=== PATIENT | female | born 1990 | race Two or more races ===

== ENCOUNTER 2019-06-15 01:13 | Inpatient (IN) | payer BC ==
[2019-06-15] MEDS ORDERED: Carboprost Tromethamine 250 MCG/1 ML Amp IM PRN (03:31)
[2019-06-15] MEDS ORDERED: Misoprostol 200 MCG Tab PO PRN (03:31)
[2019-06-15] MEDS ORDERED: Sodium Chloride 0.9% 2.5 ML Syringe FLUSH PRN (03:31)
[2019-06-15] MEDS ORDERED: Sodium Chloride 0.9% 10 ML Syringe FLUSH PRN (03:31)
[2019-06-15] MEDS ORDERED: Ondansetron 4 MG/2 ML SDV IVPUSH PRN (03:31)
[2019-06-15] MEDS ORDERED: Water For Irrigation,Sterile 1,000 ML Container IRR PRN (03:31)
[2019-06-15] MEDS ORDERED: Sodium Chloride 0.9% 10 ML SDV IV PRN (03:31)
[2019-06-15] MEDS ORDERED: Lidocaine 1% 50 ML MDV INJECT PRN (03:31)
[2019-06-15] MEDS ORDERED: Methylergonovine 0.2 MG/1 ML Amp IM PRN ×2 (03:31→12:18)
[2019-06-15] MEDS ORDERED: Tranexamic Acid 1,000 MG in Sodium Chloride 0.9% 100 ML IV PRN (03:31)
[2019-06-15] MEDS ORDERED: Butorphanol 1 MG/ML SDV IVPUSH PRN (03:31)
[2019-06-15] MEDS ORDERED: Nalbuphine 10 MG/1 ML Vial IVPUSH PRN (03:31)
[2019-06-15] MEDS ORDERED: Oxytocin/0.9 % Sodium Chloride 30 UNIT/500 ML BAG IV SCH (03:45)
[2019-06-15] MEDS: Lactated Ringers 1,000 ML IV SCH ×2 (04:45→05:52)
--- NOTE | 2019-06-15 05:18 | PCM.PREANE ---
Preanesthetic Assessment - Anesthesia/Transfusion/Family Hx Anesthesia History: Prior Anesthesia Without Reaction Family History of Anesthesia Reaction: No Transfusion History: No Prior Transfusion(s) - Review of Systems General: No Symptoms Pulmonary: No Symptoms Cardiovascular: No Symptoms Gastrointestinal: No Symptoms Neurological: No Symptoms Other: Reports: None - Physical Assessment Height: 5 ft 3 in Weight: 72.575 kg ASA Class: 2 Mental Status: Alert & Oriented x3 Airway Class: Mallampati = 2 Dentition: Reports: Normal Dentition Thyro-Mental Finger Breadths: 3 Mouth Opening Finger Breadths: 3 ROM/Head Extension: Full Lungs: Clear to Auscultation, Normal Respiratory Effort Cardiovascular: Regular Rate, Regular Rhythm - Lab Values: Laboratory Last Values WBC 12.76 K/uL (4.0-11.0) H 06/15/19 03:50 RBC 4.71 M/uL (4.30-5.90) 06/15/19 03:50 Hgb 12.6 g/dL (12.0-16.0) 06/15/19 03:50 Hct 38.6 % (36.0-46.0) 06/15/19 03:50 MCV 82.0 fL (80.0-98.0) 06/15/19 03:50 MCH 26.8 pg (27.0-32.0) L 06/15/19 03:50 MCHC 32.6 g/dL (31.0-37.0) 06/15/19 03:50 RDW Std Deviation 46.7 fl (28.0-62.0) 06/15/19 03:50 RDW Coeff of Rodo 16 % (11.0-15.0) H 06/15/19 03:50 Plt Count 159 K/uL (150-400) 06/15/19 03:50 MPV 11.40 fL (7.40-12.00) 06/15/19 03:50 Nucleated RBC % 0.0 /100WBC 06/15/19 03:50 Nucleated RBCs # 0 K/uL 06/15/19 03:50 Blood Type O POSITIVE 06/15/19 03:50 Antibody Screen NEGATIVE 06/15/19 03:50 - Allergies Allergies/Adverse Reactions: Allergies Allergy/AdvReac Type Severity Reaction Status Date / Time No Known Allergies Allergy Verified 07/20/15 07:19 - Acknowledgements Anesthesia Type Planned: Epidural Pt an Appropriate Candidate for the Planned Anesthesia: Yes Alternatives and Risks of Anesthesia Discussed w Pt/Guardian: Yes Pt/Guardian Understands and Agrees with Anesthesia Plan: Yes PreAnesthesia Questionnaire HEENT History: Reports: None Cardiovascular History: Reports: None Respiratory History: Reports: None Gastrointestinal History: Reports: GERD Genitourinary History: Reports: None SOLE CONDITIONER History: Reports: : 4 Para: 2 LMP (Approximate): Musculoskeletal History: Reports: None Neurological History: Reports: None Psychiatric History: Reports: None Endocrine/Metabolic History: Reports: Diabetes, Gestational Hematologic History: Reports: None Immunologic History: Reports: None Oncologic (Cancer) History: Reports: None Dermatologic History: Reports: None - Infectious Disease History Infectious Disease History: Reports: None - Past Surgical History GI Surgical History: Reports: Other (See Below) Other GI Surgeries/Procedures: surgery for abdominal mass - HOME MEDS Home Medications: Home Meds Iron,Carbonyl/Vit C/Vit B12/Fa [Iron 100 Plus Tablet] 1 each PO DAILY 06/15/19 [ History] Vits #93/Iron Fum/FA [ Formula Tablet] 1 each PO DAILY [History] - CURRENT (IN HOUSE) MEDS Current Meds: Current Medications Butorphanol Tartrate (Stadol) 1 mg IVPUSH Q1H PRN PRN Reason: Pain Carboprost Tromethamine (Hemabate Ds) 250 mcg IM ASDIRECTED PRN PRN Reason: Post Hemorrhage Tranexamic Acid 1,000 mg/ (Sodium Chloride) 110 mls @ 660 mls/hr IV ONETIME PRN PRN Reason: Bleeding Lactated Ringer's (Ringers, Lactated) 1,000 mls @ 150 mls/hr IV ASDIRECTED SILVER Oxytocin/Sodium Chloride (Oxytocin 30 Unit/500 Ml-Ns) 30 unit in 500 mls @ 999 mls/hr IV TITRATE SILVER Lidocaine HCl (Xylocaine 1%) 50 ml INJECT ONETIME PRN PRN Reason: Laceration repair Methylergonovine Maleate (Methergine) 0.2 mg IM ASDIRECTED PRN PRN Reason: Post Hemorrhage Misoprostol (Cytotec) 200 mcg PO ONETIME PRN PRN Reason: Post Hemorrhage Nalbuphine HCl (Nubain) 10 mg IVPUSH Q1H PRN PRN Reason: Pain (severe 7-10) Ondansetron HCl (Zofran) 4 mg IVPUSH Q6H PRN PRN Reason: Nausea/Vomiting Sodium Chloride (Saline Flush) 10 ml FLUSH ASDIRECTED PRN PRN Reason: Keep Vein Open Sodium Chloride (Saline Flush) 2.5 ml FLUSH ASDIRECTED PRN PRN Reason: Keep Vein Open Sodium Chloride (Normal Saline) 10 ml IV ASDIRECTED PRN PRN Reason: IV Use Sterile Water (Sterile Water For Irrigation) 1,000 ml IRR ASDIRECTED PRN PRN Reason: delivery
--- NOTE | 2019-06-15 11:52 | PCM.OPNOTE ---
- General Post-Op/Procedure Note Date of Surgery/Procedure: 06/15/19 Findings: Vaginal delivery of live male . Apgars 9/9. Weight pending. 3VC. placenta intact. Pre Op Diagnosis: 29yo at 39/3 IUP. Presenting in active labor. History of diet controlled gestational diabetes. Post-Op Diagnosis: same Anesthesia Technique: Epidural Primary Surgeon: Danielle Garibay Surgery Teacher: Alyssa Brito Role of Surgery Teacher: Medical Student, MS4 EBL in mLs: 250 Condition: Good
--- NOTE | 2019-06-15 12:00 | PCM48HPAN ---
Post Anesthesia Note - EVALUATION WITHIN 48HRS OF ANESTHETIC Vital Signs in Normal Range: Yes Patient Participated in Evaluation: Yes Respiratory Function Stable: Yes Airway Patent: Yes Cardiovascular Function Stable: Yes Hydration Status Stable: Yes Pain Control Satisfactory: Yes Nausea and Vomiting Control Satisfactory: Yes Mental Status Recovered: Yes
[2019-06-15] MEDS ORDERED: Acetaminophen 500 MG Tab PO PRN ×2 (12:18)
[2019-06-15] MEDS ORDERED: Measles, Mumps & Rubella Vaccine 0.5 ML SDV SUBCUT ONE (12:18)
[2019-06-15] MEDS ORDERED: Lanolin 100% Cream 7 GM Tube TOP PRN (12:18)
[2019-06-15] MEDS ORDERED: Ibuprofen 400 MG Tab PO PRN (12:18)
[2019-06-15] MEDS ORDERED: Benzocaine/Menthol 20%-0.5% Spray 78 GM Cannister TOP PRN (12:18)
[2019-06-15] MEDS ORDERED: Ibuprofen 800 MG Tab PO PRN (12:18)
[2019-06-15] MEDS ORDERED: oxyCODONE 5 MG Tab PO PRN (12:18)
[2019-06-15] MEDS ORDERED: Bisacodyl 10 MG Supp RECTAL PRN (12:18)
[2019-06-15] MEDS ORDERED: Witch Hazel Medicated Pads 40/Jar TOP PRN (12:18)
[2019-06-15] MEDS: Docusate Sodium 100 MG Cap PO PRN (14:09)
--- NOTE | 2019-06-15 14:26 | OR ---
SURGEON: Danielle Garibay M.D. DATE OF PROCEDURE: 06/15/2019 PREOPERATIVE DIAGNOSES: A 39-3/7 weeks' intrauterine , active spontaneous labor, gestational diabetes. POSTOPERATIVE DIAGNOSES: A 39-3/7 weeks' intrauterine , active spontaneous labor, gestational diabetes. PROCEDURE: Term spontaneous vaginal delivery. PRIMARY SURGEON: Danielle Garibay MD. [employer]ART[employer] TEACHER: , MS4. ANESTHESIA: Epidural. ESTIMATED BLOOD LOSS: Less than 200 mL. FINDINGS: Live-born male. scores 9 and 9. Weight is pending at the time of dictation. Placenta spontaneous, Schultze intact, with 3 vessels. Perineum intact. COMPLICATIONS: None known. DISPOSITION: Mother and baby are in LDR in good condition. BRIEF HISTORY: This is a 29-year-old female, G4, P2-0-1-2. She presents at 39-3/7 weeks' gestation in active spontaneous labor, initially 5 cm dilated. She was admitted for labor management. Glucose readings during labor were normal. She was diet- controlled gestational diabetic, and she received an epidural for pain control. She had category 1 heart tones. Artificial rupture of membranes with clear fluid was performed. She progressed to complete. DESCRIPTION OF PROCEDURE: With the patient in dorsal lithotomy position, under adequate epidural analgesia, the patient pushed over a 5-minute time period to a 5+ station at which time the head was delivered spontaneously and atraumatically over the perineum with support with subsequent delivery of the infant's shoulders and body without any difficulty. The was bulb suctioned by nose and mouth, and after the cord had ceased to pulsate, it was doubly clamped and cut. The infant was handed to the mother in the presence of the nurse attending delivery. The infant was a liveborn male, scores 9 and 9, weight is pending at the time of dictation. Cord blood was collected for cord ABGs as well as routine cord blood sampling. Pitocin was initiated after delivery of the to assist with delivery of the placenta which was delivered spontaneously, Schultze intact, with 3 vessels. Upon inspection of the pelvis and perineum, there were no periurethral, vaginal sidewall, cervical, rectal, or perineal lacerations. EBL was less than 200 mL. There were no known complications. Mother and baby are in LDR in good condition. YENI MEDINA /[id number] MTDFroylan
[2019-06-16 06:35] LABS: BLOOD UREA NITROGEN,BUN 10 mg/dL (7.0-18.0); CARBON DIOXIDE,CO2 22.8 mmol/L (21.0-32.0); CHLORIDE,CL 107 mmol/L (98-107); GLUCOSE RANDOM 67 mg/dL (74-106); POTASSIUM,K 3.8 mmol/L (3.5-5.1); SODIUM,NA 140 mmol/L (136-145)
[2019-06-16] MEDS: Docusate Sodium 100 MG Cap PO PRN (07:48)
--- NOTE | 2019-06-16 09:17 | PCM.PNPP ---
- General Info Date of Service: 06/16/19 Functional Status: Reports: Pain Controlled - Review of Systems General: Reports: No Symptoms. Denies: Fever, Chills HEENT: Reports: No Symptoms. Denies: Headaches Pulmonary: Reports: No Symptoms. Denies: Shortness of Breath Cardiovascular: Reports: No Symptoms. Denies: Chest Pain, Palpitations Gastrointestinal: Reports: No Symptoms, Abdominal Pain (mild cramping) Genitourinary: Reports: No Symptoms. Denies: Dysuria Musculoskeletal: Reports: No Symptoms Skin: Reports: No Symptoms Neurological: Reports: No Symptoms Psychiatric: Reports: No Symptoms - General Info Date of Service: 06/16/19 - Patient Data Vital Signs - Most Recent: Last Vital Signs Temp 97.5 F 06/16/19 07:58 Pulse 60 06/16/19 07:58 Resp 16 06/16/19 07:58 BP 96/72 06/16/19 07:58 Pulse Ox 99 06/16/19 07:58 Weight - Most Recent: 160 lb Lab Results - Last 24 Hours: Laboratory Results - last 24 hr 06/15/19 06/15/19 06/16/19 Range/Units 09:33 10:34 05:32 Hgb 11.6 L (12.0-16.0) g/dL Hct 36.2 (36.0-46.0) % Sodium (136-145) mmol/L Potassium (3.5-5.1) mmol/L Chloride (98-107) mmol/L Carbon Dioxide (21.0-32.0) mmol/L BUN (7.0-18.0) mg/dL Creatinine (0.6-1.0) mg/dL Est Cr Clr Drug Dosing mL/min Estimated GFR (MDRD) ml/min Glucose (74-106) mg/dL POC Glucose 80 70 (60-110) mg/dL Calcium (8.5-10.1) mg/dL 06/16/19 06/16/19 Range/Units 05:32 07:17 Hgb (12.0-16.0) g/dL Hct (36.0-46.0) % Sodium 140 (136-145) mmol/L Potassium 3.8 (3.5-5.1) mmol/L Chloride 107 (98-107) mmol/L Carbon Dioxide 22.8 (21.0-32.0) mmol/L BUN 10 (7.0-18.0) mg/dL Creatinine 0.6 (0.6-1.0) mg/dL Est Cr Clr Drug Dosing 115.47 mL/min Estimated GFR (MDRD) > 60.0 ml/min Glucose 67 L (74-106) mg/dL POC Glucose 66 (60-110) mg/dL Calcium 8.4 L (8.5-10.1) mg/dL Med Orders - Current: Current Medications Acetaminophen (Tylenol Extra Strength) 500 mg PO Q4H PRN PRN Reason: Pain Acetaminophen (Tylenol Extra Strength) 1,000 mg PO Q4H PRN PRN Reason: Pain Last Admin: 06/16/19 07:47 Dose: 1,000 mg Benzocaine/Menthol (Dermoplast Pain Relief 20%-0.5% [place]) 78 gm TOP ASDIRECTED PRN PRN Reason: Perineal Comfort Measure Last Admin: 06/15/19 14:08 Dose: 1 spray Bisacodyl (Dulcolax) 10 mg RECTAL ONETIME PRN PRN Reason: Constipation Docusate Sodium (Colace) 100 mg PO BID PRN PRN Reason: Constipation Last Admin: 06/16/19 07:48 Dose: 100 mg Emollient Ointment (Lansinoh Hpa) 0 gm TOP ASDIRECTED PRN PRN Reason: Sore Nipples Last Admin: 06/15/19 14:08 Dose: 1 gm Ibuprofen (Motrin) 400 mg PO Q4H PRN PRN Reason: Pain Ibuprofen (Motrin) 800 mg PO Q6H PRN PRN Reason: Pain Last Admin: 06/15/19 22:53 Dose: 800 mg Methylergonovine Maleate (Methergine) 0.2 mg IM ONETIME PRN PRN Reason: Excessive Vaginal Bleeding Oxycodone HCl (Oxycodone) 5 mg PO Q2H PRN PRN Reason: Pain Witch Coni (Tucks) 1 pad TOP ASDIRECTED PRN PRN Reason: comfort care Last Admin: 06/15/19 14:09 Dose: 1 pad Discontinued Medications Butorphanol Tartrate (Stadol) 1 mg IVPUSH Q1H PRN PRN Reason: Pain Carboprost Tromethamine (Hemabate Ds) 250 mcg IM ASDIRECTED PRN PRN Reason: Post Hemorrhage Tranexamic Acid 1,000 mg/ (Sodium Chloride) 110 mls @ 660 mls/hr IV ONETIME PRN PRN Reason: Bleeding Lactated Ringer's (Ringers, Lactated) 1,000 mls @ 150 mls/hr IV ASDIRECTED [facility] Last Admin: 06/15/19 05:52 Dose: 150 mls/hr Oxytocin/Sodium Chloride (Oxytocin 30 Unit/500 Ml-Ns) 30 unit in 500 mls @ 999 mls/hr IV TITRATE [facility] Last Admin: 06/15/19 11:39 Dose: 999 mls/hr Fentanyl/Bupivacaine HCl (Imhotrvu-Xqdpi-Aj 2 Mcg/Ml-0.125%) Confirm Administered Dose 100 mls @ as directed .ROUTE .K-MED ONE Stop: 06/15/19 05:23 Lidocaine HCl (Xylocaine 1%) 50 ml INJECT ONETIME PRN PRN Reason: Laceration repair Measles/Mumps/Rubella Vaccine Live (M-M-R Ii Vaccine) 0.5 ml SUBCUT .ONCE ONE Stop: 06/15/19 12:19 Methylergonovine Maleate (Methergine) 0.2 mg IM ASDIRECTED PRN PRN Reason: Post Hemorrhage Misoprostol (Cytotec) 200 mcg PO ONETIME PRN PRN Reason: Post Hemorrhage Nalbuphine HCl (Nubain) 10 mg IVPUSH Q1H PRN PRN Reason: Pain (severe 7-10) Ondansetron HCl (Zofran) 4 mg IVPUSH Q6H PRN PRN Reason: Nausea/Vomiting Sodium Chloride (Saline Flush) 10 ml FLUSH ASDIRECTED PRN PRN Reason: Keep Vein Open Sodium Chloride (Saline Flush) 2.5 ml FLUSH ASDIRECTED PRN PRN Reason: Keep Vein Open Sodium Chloride (Normal Saline) 10 ml IV ASDIRECTED PRN PRN Reason: IV Use Sterile Water (Sterile Water For Irrigation) 1,000 ml IRR ASDIRECTED PRN PRN Reason: delivery Last Admin: 06/15/19 12:03 Dose: 1,000 ml - Interaction Disposition, : in Room with Family Infant Interaction: Holding Infant Feeding: Breastfed Infant; Nursed Well Support Person: - Recovery Exam Fundal Tone: Firm Fundal Level: 1 Fingerbreadths Below Umbilicus Fundal Placement: Midline Lochia Amount: Scant Lochia Color: Rubra/Red Perineum Description: Other (see below) (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) Episiotomy/Laceration: None Bladder Status: Nonpalpable, Voiding Urinary Elimination: Voided - Exam General: Alert, Oriented HEENT: Pupils Equal Neck: Supple Lungs: Clear to Auscultation, Normal Respiratory Effort Cardiovascular: Regular Rate, Regular Rhythm GI/Abdominal Exam: Normal Bowel Sounds, Soft, Non-Tender, No Organomegaly, No Distention, No Abnormal Bruit, No Mass, Pelvis Stable Extremities: Normal Inspection, Normal Range of Motion, Non-Tender, No Pedal Edema, Normal Capillary Refill Skin: Warm, Dry, Intact Neurological: No New Focal Deficit Psy/Mental Status: Alert, Normal Affect, Normal Mood - Problem List Review Problem List Initiated/Reviewed/Updated: Yes - Assessment Assessment:: 29y s/p , PPD1, stable Normal lochia well - Plan Plan:: Regular diet Ambulate PRN Pain control PRN Routine care Possible discharge to home today
[2019-06-16 17:22] VITALS: BP 102/69; PULSE 63
== END 2019-06-16 17:00 | disposition home or self-care (01) | DRG 560 ==
LOC: MW.OB 01:13 → MW.OBCHECK 01:13 → MW.OB 03:31 → OBSVTOIN 12:18 → MW.OB 21:00
PROVIDERS: ADMIT Obstetrics & Gynecology; ATTEND Obstetrics & Gynecology
PROC: 10E0XZZ Delivery of Products of Conception, External Approach (ICD-10-PCS; principal; 2019-06-15)
PROC: 4A1HXCZ Monitoring of Products of Conception, Cardiac Rate, External Approach (ICD-10-PCS; 2019-06-15)
PROC: 3E0R3BZ Introduction of Anesthetic Agent into Spinal Canal, Percutaneous Approach (ICD-10-PCS; 2019-06-16)
DX: O24.424 Gestational diabetes mellitus in childbirth, insulin controlled (principal); Z3A.39 39 weeks gestation of pregnancy; Z37.1 Single stillbirth; Z23 Encounter for immunization
CPT/HCPCS: 36415; 51702; 59025; 59409; 80048; 82962; 85014; 85018; 85027; 86850; 86900; 86901; 90471; 90707; A9270-GY; J2590; J7120